=== PATIENT | male | born 1990 | race Caucasian/White ===

== ENCOUNTER 2017-07-27 10:48 | Emergency (ER) | payer OTHER ==
[2017-07-27] MEDS ORDERED: ONDANSETRON 4 MG/2 ML VIAL IVP ONE (11:05)
[2017-07-27] MEDS ORDERED: NS 1,000 ML IV ONE (11:05)
--- NOTE | 2017-07-27 11:07 | EDPHY ---
H & P Time Seen by Provider: 07/27/17 10:52 HPI/ROS: CHIEF COMPLAINT: Abdominal pain for the last 36 hr HISTORY OF PRESENT ILLNESS: Patient had similar symptoms about 2 months ago but resolved and he did not seek medical care, because he planned asked his girlfriend to him the next day. He was doing well until a day and half ago when he developed abdominal pain which initially was epigastric in all above the umbilicus. Today it has migrated below the umbilicus but still hurts most just below his ribs in the middle. Associated with nausea but no vomiting , no diarrhea. Worse with movement. Symptoms moderate currently, and he felt a little bit short of breath earlier but not now. No family history of Crohn's or ulcerative colitis. REVIEW OF SYSTEMS: Eye: no change in vision ENT: no sore throat Cardiac: no chest pain or syncope Pulmonary: Not coughing Abdomen: HPI Musculoskeletal: no back pain Skin: no rash Neuro: no headache Constitutional: no fever : no urinary symptoms A comprehensive 10 point review of systems is otherwise negative aside from elements mentioned in the history of present illness. PAST MEDICAL HISTORY: Negative except for left shoulder surgery Social history: Nonsmoker, regular alcohol but he says at 6 beers will last his fiancee and him about a week General Appearance: Alert and conversant, cooperative. Eyes: No scleral icterus. ENT, Mouth: Normal mucous membranes. Respiratory: Normal respiratory effort, breath sounds equal, lungs are clear to auscultation. Cardiovascular: Regular rate and rhythm. Gastrointestinal: Epigastric abdominal tenderness but negative De Guzman sign. Some bilateral lower abdominal tenderness but no rebound or guarding. No hernia. Male is normal. Neurological: Alert, face symmetric, normal motor and sensory in extremities. Skin: Warm and dry, no rashes. Musculoskeletal: No peripheral edema. Psychiatric: Not agitated. Emergency Department course/MDM: IV normal saline 1 L and Zofran 4 mg IV for nausea. I-STAT and CT discussed and consented. 1233: Examined, soft non tender, results discussed. PPI and outpatient followup. Smoking Status: Never smoked Constitutional: Initial Vital Signs Temperature (C) 36.5 C 07/27/17 10:52 Heart Rate 70 07/27/17 10:52 Respiratory Rate 16 07/27/17 10:52 Blood Pressure 136/87 H 07/27/17 10:52 O2 Sat (%) 96 07/27/17 10:52 O2 Delivery Mode Room Air Allergies/Adverse Reactions: No Known Allergies Allergy (Unverified 07/27/17 10:52) Home Medications: Medication Instructions Recorded Pantoprazole Sodium [Protonix] 40 mg PO DAILY #15 tab 07/27/17 Medical Decision Making - Diagnostics Imaging Results: Imaging Impressions Abdomen CT 07/27/17 11:20 Impression: 1. Normal CT abdomen and pelvis with contrast enhancement. 2. No CT evidence of appendicitis, abscess or bowel obstruction. 1229: Normal CT abdomen pelvis per Dr. Jarrett Imaging: Discussed imaging studies w/ geomagnetician Radiologist Differential Diagnosis: Differential diagnosis considered for abdominal pain including but not limited to appendicitis, cholecystitis, pancreatitis, gastritis and urinary tract infection. - Data Points Laboratory Results: Laboratory Results 07/27/17 11:05 07/27/17 11:05 07/27/17 07/27/17 07/27/17 11:09 11:05 11:05 WBC 7.47 10^3/uL 10^3/uL (3.80-9.50) RBC 4.96 10^6/uL 10^6/uL (4.40-6.38) Hgb 16.0 g/dL g/dL (13.7-17.5) POC Hgb 16.0 gm/dL gm/dL (13.7-17.5) Hct 45.0 % % (40.0-51.0) POC Hct 47 % % (40-51) MCV 90.7 fL fL (81.5-99.8) MCH 32.3 pg pg (27.9-34.1) MCHC 35.6 g/dL g/dL (32.4-36.7) RDW 11.9 % % (11.5-15.2) Plt Count 232 10^3/uL 10^3/uL (150-400) MPV 10.4 fL fL (8.7-11.7) Neut % (Auto) 73.1 % % (39.3-74.2) Lymph % (Auto) 17.9 % % (15.0-45.0) [place] % (Auto) 7.8 % % (4.5-13.0) Eos % (Auto) 0.7 % % (0.6-7.6) Baso % (Auto) 0.4 % % (0.3-1.7) Nucleat RBC Rel Count 0.0 % % (0.0-0.2) Absolute Neuts (auto) 5.46 10^3/uL 10^3/uL (1.70-6.50) Absolute Lymphs (auto) 1.34 10^3/uL 10^3/uL (1.00-3.00) Absolute Monos (auto) 0.58 10^3/uL 10^3/uL (0.30-0.80) Absolute Eos (auto) 0.05 10^3/uL 10^3/uL (0.03-0.40) Absolute Basos (auto) 0.03 10^3/uL 10^3/uL (0.02-0.10) Absolute Nucleated RBC 0.00 10^3/uL 10^3/uL (0-0.01) Immature Gran % 0.1 % % (0.0-1.1) Immature Gran # 0.01 10^3/uL 10^3/uL (0.00-0.10) POC Sodium 141 mEq/L mEq/L (135-145) Sodium 143 mEq/L mEq/L (135-145) POC Potassium 3.8 mEq/L mEq/L (3.3-5.0) Potassium 4.0 mEq/L mEq/L (3.3-5.0) POC Chloride 106 mEq/L mEq/L (97-110) Chloride 107 mEq/L mEq/L (97-110) Carbon Dioxide 23 mEq/l mEq/l (22-31) Anion Gap 13 mEq/L mEq/L (8-16) POC BUN 13 mg/dL mg/dL (7-23) BUN 15 mg/dL mg/dL (7-23) Creatinine 0.9 mg/dL mg/dL (0.7-1.3) POC Creatinine 1.0 mg/dL mg/dL (0.7-1.3) Estimated GFR > 60 Glucose 92 mg/dL mg/dL (70-100) POC Glucose 100 mg/dL mg/dL (70-100) Calcium 10.3 mg/dL mg/dL (8.5-10.4) Total Bilirubin 1.3 mg/dL mg/dL (0.1-1.4) Conjugated Bilirubin 0.3 mg/dL mg/dL (0.0-0.5) Unconjugated Bilirubin 1.0 mg/dL mg/dL (0.0-1.1) AST 28 IU/L IU/L (17-59) ALT 31 IU/L IU/L (21-72) Alkaline Phosphatase 72 IU/L IU/L (38-126) Total Protein 8.1 g/dL g/dL (6.3-8.2) Albumin 4.9 g/dL g/dL (3.5-5.0) Lipase 91 IU/L IU/L (23-300) Medications Given: Discontinued Medications Sodium Chloride (Ns) 1,000 mls @ 0 mls/hr IV EDNOW ONE; Wide Open PRN Reason: Protocol Stop: 07/27/17 11:06 Last Admin: 07/27/17 11:09 Dose: 1,000 mls Ondansetron HCl (Zofran) 4 mg IVP EDNOW ONE Stop: 07/27/17 11:06 Last Admin: 07/27/17 11:09 Dose: 4 mg Point of Care Test Results: 07/27/17 11:09 POC Sodium 141 POC Potassium 3.8 POC Chloride 106 POC BUN 13 POC Creatinine 1.0 POC Glucose 100 Departure - Departure Disposition: Home, Routine, Self-Care Clinical Impression: Abdominal pain Qualifiers: Abdominal location: epigastric Qualified Code(s): R10.13 - Epigastric pain Condition: Good Instructions: Acute Abdominal Pain (ED) Additional Instructions: Reduce caffeine and alcohol. Referrals: Anne Marie Zambrano MD [Medical Doctor] - 5-7 days, if not improved Prescriptions: Pantoprazole Sodium [Protonix] 40 mg PO DAILY #15 tab
[2017-07-27 11:12] LABS: PLATELET COUNT 232 10^3/uL (150-400)
[2017-07-27] MEDS ORDERED: IOPAMIDOL (ISOVUE-300) 100 ML BTL ONE (11:26)
[2017-07-27 12:53] VITALS: BP 120/78
== END 2017-07-27 12:50 | disposition home or self-care (01) ==
DX: R10.13 Epigastric pain (principal); E86.9 Volume depletion, unspecified
CPT/HCPCS: 82947-QW; 96374; J2405; Q9967